=== PATIENT | female | born 1940 | race Caucasian/White ===

== ENCOUNTER 2020-11-05 12:36 | Outpatient (REF) | payer MEDICARE, SELFPAY ==
[2020-11-05 12:46] LABS: Glucose Urine UA NEG (NEG); Leukocyte Esterase Urine NEG (NEG); Nitrite Urine NEG (NEG); PH 5.5 (5.0-8.0); Specific Gravity - Urine 1.025 (1.005-1.025); Urine Blood NEG (NEG); Urine Ketones NEG (NEG); Urine Protein NEG (NEG-TRACE)
[2020-11-05 12:57] LABS: Appearance Urine CLEAR; Color Urine YELLOW
== END 2020-11-05 12:37 | disposition home or self-care (01) ==
LOC: HO.LNP 12:36
PROVIDERS: Visit Provider Internal Medicine
DX: N39.0 Urinary tract infection, site not specified (principal)
CPT/HCPCS: 81003; 87086